=== PATIENT | female | born 1950 | race Caucasian/White ===

== ENCOUNTER 2025-06-18 17:33 | Emergency (ER) | payer MEDICARE, BC, SELFPAY ==
[2025-06-18 17:55] VITALS: BP 146/78; PULSE 76; RESP 18; TEMP 36.9; O2SAT 98; BMI 30.3
--- NOTE | 2025-06-18 18:25 | EDNOTE_ITS ---
ED Head Injury RME/HPI General Chief complaint: Head Injury Stated complaint: FELL HIT RIGHT SIDE OF HEAD, NO LOC Time Seen by Provider: 06/18/25 18:20 Arrival date/time: 06/18/25 17:33 RME / HPI RME / HPI Narrative: 75-year-old female who uses a walker at baseline presents to the ER complaining of tripping on her shoe landing on her head. Denies loss of consciousness, nausea, vomiting, vision changes, numbness, tingling, weakness, dizziness. Denies any chest pain or shortness of breath prior to fall. Related Data Home Medications ?Medication ?Instructions ?Recorded ?Confirmed calcitonin (salmon) 200 1 spray intranasal (ALT) QDA Y 11/22/18 11/22/18 unit/actuation nasal spray Previous Rx's ?Medication ?Instructions ?Recorded acetaminophen 325 mg tablet (Mapap 650 mg (2 x 325 mg) PO Q6HR PRN 11/25/18 (acetaminophen)) Pain Scale 1-3 (Mild #100 ta bs lisinopril 10 mg tablet 10 mg PO QDAY #30 tabs 03/05 azelastine 137 mcg (0.1 %) nasal 137 mcg (0.137 mL) in tranasal BID 09/24/22 spray PRN nasal congestion #30 mL Allergies Allergy/AdvReac Type Severity Reaction Status Date / Time codeine Allergy Intermediate RASH Verified 06/18/25 17:36 Review of Systems Review of Systems Systems Reviewed: All systems reviewed, normal except as documented ED Exam Narrative Physical exam: Constitutional: Patient alert, oriented, in no acute distress. Head/Face: Positive tenderness to palpation and edema to right parietal scalp. No hematomas or step-offs. Face symmetric. No midface instability. No raccoon ey es bilaterally. No thakkar signs bilaterally. Eyes: Conjunctiva clear bilaterally. Sclera anicteric bilaterally. Pupils equal, round, and reactive to light bilaterally. Extraocular movements intact bi laterally. No hyphema. Ears: External ears normal. TMs grossly intact. No hemotympanum bilaterally. No otorrhea. No mastoid tenderness. Nose: Septum midline. No rhinorrhea.No septal hematoma. Mouth/Throat: Oropharynx clear. Moist mucous membranes. Uvula midline. No tonsillar edema or exudate. No peritonsillar fullness. No trismus. Handling secretions without difficulty. No stridor. Neck: Trachea midline. Supple. No JVD. No midline tenderness or step-offs. No nuchal rigidity. Chest: Symmetric chest rise. Breath sounds equal bilaterally. No tenderness, deformity, or crepitus. Cardiovascular: RRR. Normal S1/S2. No murmurs or rubs. Radial pulses intact bilaterally. Abdomen: Soft. Non-distended. Non-tender throughout. No pulsatile mass. No rebound or guarding. Pelvis: Stable and non-tender to compression. No deformity. Back: No CVA tenderness bilaterally. No midline spinal tenderness. No step- offs. Upper Extremities: No gross deformities. No focal motor or sensory deficits bilaterally. Lower Extremities: No gross deformities. No focal motor or sensory deficits bilaterally. Neuro: Alert and oriented. Speech normal. CN II?XII grossly intact. GCS 15. Skin: Warm, dry, normal color. Course Quality Measures none Orders Category Date Time Status CT cervical spine wo con Stat Exams 06/18/25 19:[address] head/brain wo con Stat Exams 06/18/25 19:32 Completed Acetaminophen Tab [Tylenol Tab] Med 06/18/25 22:03 Discontinued 650 mg PO X1 ONE Reevaluation(s) Reevaluation #1: At the time of reassessment, the patient remains alert and oriented ?3 with GCS 15. Vitals are normal, pain is controlled, and the patient is tolerating oral intake without nausea or vomiting. The patient is agreeable to discharge and verbalizes understanding of the diagnosis, studies, treatment plan, medications (including side effects/precautions), and strict ER return precautions as discussed in the ED. All concerns were addressed, and the patient is comfortable with the plan. Vital Signs Vital signs: Vital Signs Temperature 98.5 F 06/18/25 17:55 Pulse Rate 76 06/18/25 17:55 Respiratory Rate 18 06/18/25 17:55 Blood Pressure 146/78 H 06/18/25 17:55 Pulse Oximetry (%) 98 06/18/25 17:55 Oxygen Delivery Method Room Air 06/18/25 17:55 Head Injury MDM Narrative MDM Narrative:: MDM: Based on today's evaluation, this patient's head injury is without serious intracranial injury such as hemorrhage. Based on symptoms, physical exam, and a normal CT brain, which was done after risks and benefits of doing the test were discussed, the patient is felt to be at very low risk of deterioration and can reliably be observed at home. CT was indicated. Warning signs for which immediate return is indicated have been reviewed in detail. Patient data External records reviewed:: None Clinical information provided by:: patient Social determinants that could affect healthcare access:: none Patient has the following chronic illnesses:: Balance problems ambulates with a walker How is presenting disease/condition affected by chronic disease/condition?: caused by Evaluation data The following diagnostics were reviewed and interpreted by me:: radiology exam(s) Lab and/or radiology exams considered but not ordered:: Additional Labs and radiology considered, but not ordered as they were not clinically indicated at this time. Interpretation Summary: CT brain and C-spine does note scalp swelling however no acute intracranial hemorrhage, fracture, dislocation Medications / Prescriptions Medications or Prescriptions considered but not ordered:: I considered prescription management (both outpatient prescriptions AND drug treatment in the ER) and decided that this was necessary and was prescribed as charted. Medication administrations:: Medication Administration History Discontinued Medications Acetaminophen (Acetaminophen 325 Mg Tablet) 650 mg PO X1 ONE Stop: 06/18/25 22:04 Last Admin: 06/18/25 22:18 Dose: 650 mg Documented By: SM As noted Consultations Consultation(s) initiated? (list below): No Diagnosis Differential diagnosis head injury: concussion without loss of consciousness, closed head injury and postconcussion syndrome Most likely diagnosis given after review of the tests above:: Head injury with scalp hematoma cannot exclude concussion Admission Indicated Admission indicated?: not indicated Admission Request Was there a request for admission?: No Disposition Plan Disposition Plan: Discharge Discharge Attestation Discharge Attestation: The patient and all family members were given an opportunity to ask questions and understood the discharge instructions. Discharge instructions specifically effects, indications for sooner follow up or return to the emergency department, and the expected course of current diagnosis. Patient condition: Stable Discharge Plan Plan Patient Disposition: HOME (Self Care) Patient condition on transfer: Stable Prescriptions/Referrals Prescriptions/Med Rec: No Action calcitonin (salmon) 200 unit/actuation [place],Non-Aerosol 1 spray INTRANASAL (ALT) QDAY acetaminophen [Mapap (acetaminophen)] 325 mg Tablet 650 mg PO Q6HR PRN (Reason: Pain Scale 1-3 (Mild) Qty: 100 0RF lisinopril 10 mg tablet 10 mg PO QDAY Qty: 30 0RF azelastine 137 mcg (0.1 %) aerosol,spray 137 mcg intranasal BID PRN (Reason: nasal congestion) Qty: 30 0RF Rx Instructions: administer into each nostril Referrals: Shantanu Buchanan PA-C [Primary Care Provider] - In 1 week Problem List Clinical Impression: Closed head injury Patient/Caregiver Discharge Instructions Education Materials: After a Concussion, ED Head Injury (Adult) Additional Instructions: Follow up with your primary medical doctor within 24 hours. Return to the Emergency Room immediately for any new, worsening, continuing symptoms or any concerns at all. Return to the Emergency Room within 24 hours if you are unable to follow up with your primary medical doctor within 24 hours. Print Language: Liberian Stand Alone Forms: Melvina Award Info., Patient Portal Info Letter ROSEMARY/CHING Supervising Physician ROSEMARY/CHING Supervising Physician: Dr. White
--- NOTE | 2025-06-18 19:32 | XR_ITS ---
Examination: CT cervical spine without contrast 2-D sagittal reconstructions 2-D coronal reconstructions 3-D reconstructions. Exam date and time: June 18, 2025, 6 1757 hours INDICATIONS: Patient fell today with injury to the neck, neck pain CTDI:vol (mGy) 14.5 DLP: (mGycm) 257 Technique: Multiple 2 mm axial sections of the cervical spine have been obtained. The coronal and sagittal reconstructions have been obtained. 3-D reconstructions have been obtained. Low dose protocols were performed. One or more of the following dose reduction techniques were used; automated exposure control, adjustment of the mA and/or KV according to patient size, use of iterative reconstruction technique. Findings: Axial sections demonstrate intact base of the skull. C1 exhibit satisfactory relationship to the odontoid. No acute cervical vertebral body fracture seen. Alignment posterior spinous processes satisfactory. Impression: No acute cervical fracture.
--- NOTE | 2025-06-18 19:32 | XR_ITS ---
Examination: CT brain head without contrast. 2-D sagittal coronal reconstructions Date and time of exam: June 18, 2025, 195 hours INDICATIONS: Ground-level fall today with injury to head, head pain CTDI: vol (mGy): 48.7 DLP: (mGycm): 958 Technique: Multiple CT axial sections of the brain have been obtained, 5 mm slice thickness. Contrast has not been administered. 2-D sagittal, coronal reconstructions have been obtained Low dose protocols were performed. One or more of the following dose reduction techniques were used; automated exposure control, adjustment of the mA and/or KV according to patient size, use of iterative reconstruction technique. Findings: No significant ventricular enlargement. Intra-axial or extra-axial hemorrhage density is not seen. No mass effect or midline shift Basal cisterns are not remarkable. Fourth ventricle is midline. Cranial vault intact. Right-sided scalp swelling Impression: Negative for acute hemorrhage, mass effect or midline shift
[2025-06-18] MEDS: ACETAMINOPHEN 325 MG TABLET 650 MG PO (22:18)
[2025-06-18 22:22] VITALS: PULSE 80; RESP 16; O2SAT 97
== END 2025-06-18 22:23 | disposition home or self-care (01) ==
PROVIDERS: Emergency Provider Emergency Medicine; PCP Family Medicine
DX: S09.90XA Unspecified injury of head, initial encounter (principal); W01.0XXA Fall on same level from slipping, tripping and stumbling without subsequent striking against object, initial encounter
CPT/HCPCS: 70450; 72125; 99282; A9270